=== PATIENT | female | born 1980 ===

== ENCOUNTER 2018-08-07 20:18 | Inpatient (IN) ==
[2018-08-07] MEDS ORDERED: ONDANSETRON 4 MG/2 ML VIAL IV STA (20:49)
[2018-08-07] MEDS ORDERED: SODIUM CHLORIDE 0.9% 500 ML IV STA (20:49)
[2018-08-07] MEDS ORDERED: PANTOPRAZOLE 40 MG VIAL IV STA (20:49)
[2018-08-07 21:34] LABS: Albumin 3.6 G/DL (3.4-5.0); Bilirubin,Total 8.1 MG/DL (0.2-1.0); Calcium 8.2 MG/DL (8.5-10.1); Osmolality,Calculated 283.4 MOS/KG (273-304); Potassium 3.7 MMOL/L (3.5-5.1); Total Protein 7.9 G/DL (6.4-8.3)
[2018-08-07] MEDS ORDERED: PIPERACILLIN/TAZOBACTAM 3,375 MG in SODIUM CHLORIDE 0.9% 100 ML IV STA (21:35)
[2018-08-07 21:36] LABS: Lactic Acid 0.8 MMOL/L (0.4-2.0)
[2018-08-07 22:19] LABS: Apearance,Urine CLEAR (Clear); Bacteria,Urine Occasional /HPF (Few); Blood, Urine Small mg/dL (Negative); Glucose,Urine (UA) Negative (Negative); Hyaline Casts,Urine 3 /LPF (0-3); Ketones,Urine Negative (Negative); Mucus,Urine Occasional /LPF (Occasional); Nitrite,Urine Negative (Negative); Protein,Urine Negative; RBC,Urine 1 /HPF (0-4); Squamous Epithelial Cell,Urine Occasional /HPF (0-10); Urine Color Amber (Yellow); Urine Specific Gravity 1.018 (1.001-1.035); WBC,Urine 4 /HPF (0-6)
[2018-08-07 22:20] LABS: Bilirubin,Urine Moderate mg/dL (Negative)
[2018-08-07 22:22] LABS: Basophils % 0.4 % (0.0-0.8); Eosinophils # 0.1 10*3/uL (0.0-0.87); Eosinophils % 2.5 % (0.00-10.9); Hematocrit 39.7 VOL% (35.7-47.0); Hemoglobin 14.3 GM/DL (12.0-16.0); Immature Granulocytes % 0.2 %; Immature Granulocytes Absolute 0.01 #; Lymphocytes # 0.8 10*3/uL (1.4-4.0); Lymphocytes % 14.7 % (21.3-54.2); Mean Corpuscular Hemoglobin 39 PG (27-34); Mean Corpuscular Volume 107.9 FL (87-102); Mean Platelet Volume 9.4 FL (9.6-12.0); Monocytes # 0.2 10*3/uL (0.11-0.8); Monocytes % 4.1 % (1.7-12.7); Neutrophils # 4.4 10*3/uL (1.4-7.4); Neutrophils % 78.1 % (38.7-73.9); Platelet Count 119 T/CUMM (130-400); Red Blood Count 3.68 MC/CUMM (3.8-5.5); Red Cell Distribution Width 12.5 % (9.3-17.3); White Blood Count 5.6 T/CUMM (4-12)
[2018-08-07] MEDS ORDERED: GLUCAGON 1 MG VIAL IM PRN (23:34)
[2018-08-07] MEDS ORDERED: ACETAMINOPHEN 325 MG TABLET PO PRN (23:34)
[2018-08-07] MEDS ORDERED: DEXTROSE 50% 25 GM/50 ML VIAL IV PRN (23:34)
[2018-08-07] MEDS: SODIUM CHLORIDE 0.9% 1,000 ML IV SCH (23:48)
[2018-08-08] MEDS: ALBUTEROL/IPRATROPIUM 3 ML NEB RESP TX SCH ×4 (00:11→20:33)
[2018-08-08] MEDS: INSULIN REGULAR 100 UNIT/ML SUBCUT SCH ×4 (01:52→17:57)
[2018-08-08] MEDS: PIPERACILLIN/TAZOBACTAM 3,375 MG in SODIUM CHLORIDE 0.9% 100 ML IV SCH ×3 (05:30→22:09)
[2018-08-08] MEDS ORDERED: LACTATED RINGERS 500 ML IV ONE (08:55)
[2018-08-08] MEDS ORDERED: INDOMETHACIN SUPP 50 MG SUPP RECTAL ONE (08:58)
[2018-08-08 09:33] LABS: Basophils % 0.4 % (0.0-0.8); Eosinophils # 0.1 10*3/uL (0.0-0.87); Eosinophils % 2.6 % (0.00-10.9); Hematocrit 38.7 VOL% (35.7-47.0); Immature Granulocytes % 0.4 %; Immature Granulocytes Absolute 0.02 #; Lymphocytes # 0.7 10*3/uL (1.4-4.0); Mean Corpuscular HGB Conc 36.2 GM/DL (32-36); Mean Corpuscular Hemoglobin 38 PG (27-34); Mean Corpuscular Volume 105.7 FL (87-102); Mean Platelet Volume 9.7 FL (9.6-12.0); Monocytes # 0.3 10*3/uL (0.11-0.8); Monocytes % 5.1 % (1.7-12.7); Neutrophils % 78.5 % (38.7-73.9); Platelet Count 115 T/CUMM (130-400); Red Blood Count 3.66 MC/CUMM (3.8-5.5); Red Cell Distribution Width 12.5 % (9.3-17.3); White Blood Count 5.1 T/CUMM (4-12)
[2018-08-08 09:41] LABS: INR 1.1; PT Patient Result 11.4 SECS
[2018-08-08] MEDS: PANTOPRAZOLE 40 MG VIAL IV SCH (09:47)
[2018-08-08] MEDS ORDERED: PROPOFOL 200 MG/20 ML VIAL IV ONE (10:00)
[2018-08-08] MEDS ORDERED: LIDOCAINE 2% 5 ML VIAL ONE (10:00)
[2018-08-08] MEDS ORDERED: SUCCINYLCHOLINE 200 MG/10 ML VIAL ONE (10:00)
[2018-08-08] MEDS ORDERED: ONDANSETRON 4 MG/2 ML VIAL ONE (10:00)
[2018-08-08 10:03] LABS: Albumin 3.3 G/DL (3.4-5.0); Bilirubin,Total 9.2 MG/DL (0.2-1.0); Calcium 8.5 MG/DL (8.5-10.1); Osmolality,Calculated 282.3 MOS/KG (273-304); Potassium 3.8 MMOL/L (3.5-5.1); Total Protein 7.4 G/DL (6.4-8.3)
[2018-08-08] MEDS ORDERED: MIDAZOLAM 2 MG/2 ML VIAL ONE (12:32)
[2018-08-08] MEDS ORDERED: fentaNYL 100 MCG/2 ML VIAL ONE (12:32)
[2018-08-08] MEDS ORDERED: SEVOFLURANE 1 UNIT/15 MINUTE INH ONE (13:19)
[2018-08-08] MEDS: ENOXAPARIN 40 MG/0.4 ML SYRINGE SUBCUT SCH (17:48)
[2018-08-08] MEDS: ONDANSETRON 4 MG/2 ML VIAL IV PRN (22:04)
[2018-08-08] MEDS: HYDROmorphone 2 MG/1 ML VIAL IV PRN (22:04)
[2018-08-08] MEDS: hydroCHLOROthiazide 12.5 MG CAPSULE PO SCH (22:08)
[2018-08-08] MEDS: SODIUM CHLORIDE 0.9% 1,000 ML IV SCH (22:13)
[2018-08-09] MEDS: ALBUTEROL/IPRATROPIUM 3 ML NEB RESP TX SCH ×5 (02:13→19:04)
[2018-08-09] MEDS: INSULIN REGULAR 100 UNIT/ML SUBCUT SCH ×4 (02:45→19:45)
[2018-08-09] MEDS: SODIUM CHLORIDE 0.9% 1,000 ML IV SCH ×3 (02:48→21:07)
[2018-08-09] MEDS: PIPERACILLIN/TAZOBACTAM 3,375 MG in SODIUM CHLORIDE 0.9% 100 ML IV SCH ×2 (06:52→18:55)
[2018-08-09 07:23] LABS: Free T4 (Free Thyroxine) 1.27 NG/DL (0.76-1.46); Thyroid Stimulating Hormone 8.62 uIU/ml (0.358-3.74)
[2018-08-09] MEDS: LACTATED RINGERS 1,000 ML IV SCH ×2 (08:31→10:30)
[2018-08-09] MEDS ORDERED: LIDOCAINE 1%/EPI INJ 20 ML VIAL ONE (08:32)
[2018-08-09] MEDS ORDERED: BUPIVACAINE MPF 0.25% /EPI 30 ML VIAL ONE (08:32)
[2018-08-09] MEDS ORDERED: PROPOFOL 200 MG/20 ML VIAL IV ONE (10:40)
[2018-08-09] MEDS ORDERED: LIDOCAINE 1% 5 ML VIAL ONE (10:40)
[2018-08-09] MEDS ORDERED: ONDANSETRON 4 MG/2 ML VIAL ONE (10:41)
[2018-08-09] MEDS ORDERED: GLYCOPYRROLATE 0.4 MG/2 ML VIAL ONE (10:41)
[2018-08-09] MEDS ORDERED: ACETAMINOPHEN 1,000 MG/100 ML VIAL IV ONE (10:41)
[2018-08-09] MEDS ORDERED: HYDROmorphone 2 MG/1 ML VIAL ONE (10:41)
[2018-08-09] MEDS ORDERED: fentaNYL 100 MCG/2 ML VIAL ONE (10:41)
[2018-08-09] MEDS ORDERED: PHENYLEPHRINE 1 MG/10 ML SYRINGE IV ONE (10:41)
[2018-08-09] MEDS ORDERED: SEVOFLURANE 1 UNIT/15 MINUTE INH ONE (10:41)
[2018-08-09] MEDS ORDERED: MIDAZOLAM 2 MG/2 ML VIAL ONE (10:41)
[2018-08-09] MEDS ORDERED: LACTATED RINGERS 1,000 ML IV ONE (10:42)
[2018-08-09] MEDS ORDERED: ROCURONIUM 100 MG/10 ML VIAL IV ONE (10:42)
[2018-08-09] MEDS ORDERED: NEOSTIGMINE 10 MG/10 ML VIAL ONE (10:42)
[2018-08-09] MEDS ORDERED: GLUCAGON 1 MG VIAL ONE (13:09)
[2018-08-09] MEDS: HYDROmorphone 2 MG/1 ML VIAL IV PRN (13:43)
[2018-08-09] MEDS: LEVOTHYROXINE 25 MCG TABLET PO SCH (16:26)
[2018-08-09] MEDS: PANTOPRAZOLE 40 MG VIAL IV SCH (18:58)
[2018-08-09] MEDS: ENOXAPARIN 40 MG/0.4 ML SYRINGE SUBCUT SCH (21:08)
[2018-08-09] MEDS: hydroCHLOROthiazide 12.5 MG CAPSULE PO SCH (21:08)
[2018-08-10] MEDS: ALBUTEROL/IPRATROPIUM 3 ML NEB RESP TX SCH ×4 (00:24→19:18)
[2018-08-10] MEDS: INSULIN REGULAR 100 UNIT/ML SUBCUT SCH ×4 (01:25→17:40)
[2018-08-10] MEDS: PIPERACILLIN/TAZOBACTAM 3,375 MG in SODIUM CHLORIDE 0.9% 100 ML IV SCH ×3 (03:12→20:59)
[2018-08-10 06:20] LABS: Basophils % 0.4 % (0.0-0.8); Eosinophils # 0.1 10*3/uL (0.0-0.87); Hematocrit 42.2 VOL% (35.7-47.0); Hemoglobin 14.5 GM/DL (12.0-16.0); Immature Granulocytes % 0.4 %; Immature Granulocytes Absolute 0.02 #; Lymphocytes # 0.5 10*3/uL (1.4-4.0); Lymphocytes % 10.8 % (21.3-54.2); Mean Corpuscular HGB Conc 34.4 GM/DL (32-36); Mean Corpuscular Hemoglobin 38 PG (27-34); Mean Corpuscular Volume 111.3 FL (87-102); Monocytes # 0.3 10*3/uL (0.11-0.8); Monocytes % 5.4 % (1.7-12.7); Neutrophils # 4.1 10*3/uL (1.4-7.4); Platelet Count 114 T/CUMM (130-400); Red Blood Count 3.79 MC/CUMM (3.8-5.5); Red Cell Distribution Width 12.6 % (9.3-17.3)
[2018-08-10] MEDS: LEVOTHYROXINE 25 MCG TABLET PO SCH (06:20)
[2018-08-10] MEDS: HYDROmorphone 2 MG/1 ML VIAL IV PRN ×2 (06:24→21:05)
[2018-08-10 06:42] LABS: Albumin 3.1 G/DL (3.4-5.0); Bilirubin,Total 8.5 MG/DL (0.2-1.0); Calcium 8.4 MG/DL (8.5-10.1); Osmolality,Calculated 271.8 MOS/KG (273-304); Total Protein 7.3 G/DL (6.4-8.3)
[2018-08-10 06:43] LABS: Albumin 3.1 G/DL (3.4-5.0); Bilirubin,Direct 6.22 MG/DL (0.0-0.20); Bilirubin,Indirect 3.3 MG/DL (0.0-1.0); Bilirubin,Total 9.5 MG/DL (0.2-1.0); Total Protein 7.3 G/DL (6.4-8.3)
[2018-08-10 06:44] LABS: % Iron Saturation 16.9 % (18-50); Ferritin 167.9 ng/ml (8-252)
[2018-08-10 06:55] LABS: Macrocytosis Slight
[2018-08-10 06:56] LABS: Platelet Estimate Adequate
[2018-08-10 07:31] LABS: Hepatitis A Ab IgM Result Negative (Negative); Hepatitis B Core IgM Quant 0.07 Index; Hepatitis B Core IgM Result Negative (Negative); Hepatitis B Surface Ag Quant < 0.10 Index; Hepatitis B Surface Ag Result Negative (Negative); Hepatitis C Virus Ab Quant 0.13 Index; Hepatitis C Virus Ab Result Negative (Negative)
[2018-08-10] MEDS: SODIUM CHLORIDE 0.9% 1,000 ML IV SCH ×2 (10:10→20:58)
[2018-08-10] MEDS: PANTOPRAZOLE 40 MG VIAL IV SCH (11:57)
[2018-08-10] MEDS: hydroCHLOROthiazide 12.5 MG CAPSULE PO SCH (20:59)
[2018-08-11] MEDS: INSULIN REGULAR 100 UNIT/ML SUBCUT SCH ×4 (00:15→17:26)
[2018-08-11] MEDS: ALBUTEROL/IPRATROPIUM 3 ML NEB RESP TX SCH ×4 (01:10→19:11)
[2018-08-11] MEDS: PIPERACILLIN/TAZOBACTAM 3,375 MG in SODIUM CHLORIDE 0.9% 100 ML IV SCH ×3 (02:34→18:00)
[2018-08-11] MEDS: LEVOTHYROXINE 25 MCG TABLET PO SCH (06:36)
[2018-08-11 07:23] LABS: Basophils % 0.4 % (0.0-0.8); Eosinophils # 0.1 10*3/uL (0.0-0.87); Eosinophils % 1.9 % (0.00-10.9); Hematocrit 42.1 VOL% (35.7-47.0); Hemoglobin 14.2 GM/DL (12.0-16.0); Immature Granulocytes % 0.4 %; Immature Granulocytes Absolute 0.02 #; Lymphocytes # 0.7 10*3/uL (1.4-4.0); Mean Corpuscular HGB Conc 33.7 GM/DL (32-36); Mean Corpuscular Hemoglobin 38 PG (27-34); Mean Corpuscular Volume 111.1 FL (87-102); Mean Platelet Volume 10.3 FL (9.6-12.0); Monocytes # 0.3 10*3/uL (0.11-0.8); Monocytes % 6.8 % (1.7-12.7); Neutrophils # 3.5 10*3/uL (1.4-7.4); Neutrophils % 75.5 % (38.7-73.9); Platelet Count 118 T/CUMM (130-400); Red Blood Count 3.79 MC/CUMM (3.8-5.5); Red Cell Distribution Width 12.4 % (9.3-17.3); White Blood Count 4.7 T/CUMM (4-12)
[2018-08-11 08:00] LABS: Bilirubin,Direct 5.32 MG/DL (0.0-0.20); Bilirubin,Indirect 2.1 MG/DL (0.0-1.0); Bilirubin,Total 7.4 MG/DL (0.2-1.0); Total Protein 7.1 G/DL (6.4-8.3)
[2018-08-11] MEDS: LACTATED RINGERS 1,000 ML IV SCH (09:17)
[2018-08-11] MEDS: PANTOPRAZOLE 40 MG VIAL IV SCH (09:18)
[2018-08-11] MEDS: SODIUM CHLORIDE 0.9% 1,000 ML IV SCH (09:19)
[2018-08-11] MEDS: HYDROmorphone 2 MG/1 ML VIAL IV PRN (14:23)
[2018-08-11] MEDS: hydroCHLOROthiazide 12.5 MG CAPSULE PO SCH (20:38)
[2018-08-12] MEDS: ALBUTEROL/IPRATROPIUM 3 ML NEB RESP TX SCH ×4 (00:10→19:05)
[2018-08-12] MEDS: INSULIN REGULAR 100 UNIT/ML SUBCUT SCH ×4 (00:17→17:57)
[2018-08-12] MEDS: PIPERACILLIN/TAZOBACTAM 3,375 MG in SODIUM CHLORIDE 0.9% 100 ML IV SCH ×3 (02:00→17:57)
[2018-08-12] MEDS: LEVOTHYROXINE 25 MCG TABLET PO SCH (06:23)
[2018-08-12 06:31] LABS: Calcium 8.5 MG/DL (8.5-10.1); Osmolality,Calculated 276.7 MOS/KG (273-304)
[2018-08-12 06:34] LABS: Albumin 2.8 G/DL (3.4-5.0); Bilirubin,Direct 3.82 MG/DL (0.0-0.20); Bilirubin,Indirect 1.6 MG/DL (0.0-1.0); Bilirubin,Total 5.4 MG/DL (0.2-1.0); Total Protein 6.9 G/DL (6.4-8.3)
[2018-08-12] MEDS: PANTOPRAZOLE 40 MG VIAL IV SCH (09:37)
[2018-08-12] MEDS: SODIUM CHLORIDE 0.9% 1,000 ML IV SCH ×2 (09:39→17:56)
[2018-08-12] MEDS: LACTATED RINGERS 1,000 ML IV SCH (09:39)
[2018-08-12] MEDS: hydroCHLOROthiazide 12.5 MG CAPSULE PO SCH (20:23)
[2018-08-12] MEDS: ONDANSETRON 4 MG/2 ML VIAL IV PRN (20:36)
[2018-08-13] MEDS: ALBUTEROL/IPRATROPIUM 3 ML NEB RESP TX SCH ×4 (00:05→19:14)
[2018-08-13] MEDS: SODIUM CHLORIDE 0.9% 1,000 ML IV SCH ×2 (01:06→01:11)
[2018-08-13] MEDS: INSULIN REGULAR 100 UNIT/ML SUBCUT SCH ×5 (01:07→23:39)
[2018-08-13] MEDS: PIPERACILLIN/TAZOBACTAM 3,375 MG in SODIUM CHLORIDE 0.9% 100 ML IV SCH ×3 (01:30→17:42)
[2018-08-13] MEDS: LEVOTHYROXINE 25 MCG TABLET PO SCH (06:00)
[2018-08-13 08:45] LABS: Albumin 2.8 G/DL (3.4-5.0); Bilirubin,Direct 3.2 MG/DL (0.0-0.20); Bilirubin,Indirect 1.9 MG/DL (0.0-1.0); Bilirubin,Total 5.1 MG/DL (0.2-1.0); Total Protein 6.8 G/DL (6.4-8.3)
[2018-08-13] MEDS: PANTOPRAZOLE 40 MG VIAL IV SCH (08:52)
[2018-08-13] MEDS: LACTATED RINGERS 1,000 ML IV SCH (11:24)
[2018-08-13] MEDS: ONDANSETRON 4 MG/2 ML VIAL IV PRN (21:30)
[2018-08-14] MEDS: ALBUTEROL/IPRATROPIUM 3 ML NEB RESP TX SCH ×3 (01:05→14:16)
[2018-08-14] MEDS: PIPERACILLIN/TAZOBACTAM 3,375 MG in SODIUM CHLORIDE 0.9% 100 ML IV SCH ×2 (01:57→12:56)
[2018-08-14] MEDS: SODIUM CHLORIDE 0.9% 1,000 ML IV SCH (01:57)
[2018-08-14 05:55] LABS: Albumin 2.6 G/DL (3.4-5.0); Bilirubin,Direct 1.92 MG/DL (0.0-0.20); Bilirubin,Indirect 1.4 MG/DL (0.0-1.0); Bilirubin,Total 3.3 MG/DL (0.2-1.0); Total Protein 6.5 G/DL (6.4-8.3)
[2018-08-14] MEDS: INSULIN REGULAR 100 UNIT/ML SUBCUT SCH (06:08)
[2018-08-14] MEDS: PANTOPRAZOLE 40 MG VIAL IV SCH (09:42)
[2018-08-14 16:01] VITALS: BP 123/62
== END 2018-08-14 19:48 | disposition home or self-care (01) | DRG 418 ==
LOC: N.ED 20:18 → N.EDINP 21:39 → N.5E 22:41
PROVIDERS: ADMIT Surgery; ATTEND Surgery
PROC: ERCPWSP (ICD-10-PCS; 2018-08-08 11:35)
PROC: LAPCHOL (2018-08-09 08:50)